=== PATIENT | male | born 1950 | race Two or more races ===

== ENCOUNTER 2017-05-15 17:07 | Emergency (ER) | payer OTHER ==
[~2017-05-15] VITALS: Ht 165.1 cm; Wt 71.2 kg
[2017-05-15 19:14] LABS: Basophils # (auto) 0 uL; Basophils % (auto) 0.1 % (0.0-2.0); Eosinophils # (auto) 0.1 uL; Hemoglobin 10.9 g/dL (13.5-17.5); Lymphocytes # (auto) 0.5 uL; Neutrophils # (auto) 5.7 uL
[2017-05-15 19:16] LABS: Hematocrit 32.5 % (41.0-53.0); Mean Corpuscular Hgb Conc. 33.6 g/dL (32.0-36.0); Mean Corpuscular Volume 80.4 fL (80.0-100.0); Monocytes # (auto) 0.6 uL; Monocytes % (auto) 8.1 % (0.0-12.0); Neutrophils % (auto) 82.8 % (37.0-80.0); Platelet Count (auto) 262 10^3/uL (140-450); Red Blood Cells 4.04 10^6/uL (4.5-5.90); Red Cell Distribution Width 14.4 % (11.8-14.3); White Blood Cell 6.9 10^3/uL (4.4-10.8)
[2017-05-15 19:34] LABS: Urine Bacteria NONE SEEN /hpf (None Seen); Urine Blood Negative /uL (Negative); Urine Hyaline Cast FEW /lpf (0 - 2); Urine Mucus FEW (None Seen); Urine Specific Gravity 1.011 (1.001-1.035); Urine WBC <1 /hpf (0 - 3)
[2017-05-15 19:45] LABS: Albumin 3.3 g/dL (3.4-5.0); BUN/Creatinine Ratio 11.9; Bilirubin, Total 0.3 mg/dL (0.2-1.0); Calcium 8.1 mg/dL (8.5-10.1); Potassium 3.9 mmol/L (3.5-5.1)
[2017-05-15] MEDS ORDERED: SODIUM CHLORIDE 0.9% 1,000 ML IV ONE (20:30)
[2017-05-15] MEDS ORDERED: LEVOFLOXACIN 750MG 150 ML IV ONE (20:30)
[2017-05-15 23:15] VITALS: BP 119/74
== END 2017-05-15 23:37 | disposition home or self-care (01) ==
LOC: ER 17:07
DX: J10.1 Influenza due to other identified influenza virus with other respiratory manifestations (principal); I10 Essential (primary) hypertension; E78.5 Hyperlipidemia, unspecified
CPT/HCPCS: 36415; 71045; 80053; 81001; 83880; 84484; 85025; 87804; 93005; 96365; 96366; 99285; J1956; J7030

== ENCOUNTER 2024-05-04 03:25 | Inpatient (IN) | payer OTHER, MEDICAID ==
[~2024-05-04] VITALS: Ht 165.1 cm; Wt 73.4 kg
[~2024-05-04 03:25] MED LIST: ASPI1TAB20 PO; CHOL500046 PO; CYAN-17 PO; DIGO0.12 PO; DOXA4TAB83 PO; FINA5TAB4 PO; GABA400C PO; HYDR-4072 PO; OMEP20TA PO; SIMV20TA20 PO; TIZA4CAP PO
[2024-05-04 04:41] LABS: Basophils # (auto) 0 10 ^3/uL (0-0.2); Eosinophils # (auto) 0 10 ^3/uL (0-0.8); Eosinophils % (auto) 0.1 % (0.0-7.0); Hematocrit 40.1 % (41.0-53.0); Hemoglobin 13.7 g/dL (13.5-17.5); Lymphocytes % (auto) 11.4 % (10.0-50.0); Mean Corpuscular Hgb Conc. 34.1 g/dL (32.0-36.0); Monocytes # (auto) 0.4 10 ^3/uL (0-1.3); Monocytes % (auto) 4.5 % (0.0-12.0); Neutrophils # (auto) 7.2 10 ^3/uL (1.6-8.6); Nucleated Red Blood Cells % 0.1 %; Platelet Count (auto) 191 10^3/uL (140-450); Red Blood Cells 4.71 10^6/uL (4.5-5.90); Red Cell Distribution Width 14.2 % (11.8-14.3); White Blood Cell 8.6 10^3/uL (4.4-10.8)
[2024-05-04] MEDS: MORPHINE SULFATE 4 MG/ML SYR/VIAL IV ONE (04:42)
[2024-05-04] MEDS: PANTOPRAZOLE 40 MG/10 ML VIAL INJ IV ONE (04:42)
[2024-05-04] MEDS: ONDANSETRON HCL 4 MG/2 ML VIAL IV ONE (04:42)
[2024-05-04 04:49] VITALS: PULSE 63; RESP 18; O2SAT 99
[2024-05-04 05:01] LABS: Alanine Aminotransferase 16 U/L (7-40); Albumin 4.5 g/dL (3.2-4.8); Alkaline Phosphatase 115 U/L (46-116); Anion Gap 8 (5-15); Aspartate Aminotransferase 19 U/L (13-40); BUN/Creatinine Ratio 16.2 (10.0-20.0); Blood Urea Nitrogen 12 mg/dL (9-23); Carbon Dioxide 27 mmol/L (20-31); Chloride 105 mmol/L (98-107); Lipase 38 U/L (12-53); Sodium 140 mmol/L (136-145); Total Protein 6.9 g/dL (5.7-8.2)
[2024-05-04 05:02] LABS: Bilirubin, Total 1.1 mg/dL (0.2-1.0)
[2024-05-04 05:06] LABS: Glucose 132 mg/dL (74-106)
[2024-05-04 05:08] LABS: Lactic Acid w/Reflex 2.2 mmol/L (0.4-2.0)
--- NOTE | 2024-05-04 05:26 | DVH ---
Exam: CT CT AB PEL WO CON-NO ORAL OR IV History: upper abd pain Comparison Study: None available at time of dictation. TECHNIQUE: Multidetector CT of the abdomen and pelvis was performed from lung bases to ischial tubero sities. Imaging was performed without IV contrast using axial images. Coronal and sagittal reformats were obtained from the axial data set by the technologist. Radiation Dose Information: CT Dose: CTDI volume is 12.5 mGy. Dose-length product is 650.8 mGy*cm FINDINGS: Evaluation of solid organs is limited due to lack of intravenous contrast use. Findings: Lung Bases: No acute or significant lung base finding. Normal heart size. No pleural or pericardial effusion. Liver: The liver is normal in size. No focal lesions. Gallbladder and Biliary Tree: Cholecystectomy. No intrahepatic biliary ductal dilatation. The commo n bile duct is dilated measuring 11 mm. Spleen: Unremarkable Pancreas: The pancreas is grossly normal in appearance. Adrenal Glands: Unremarkable Kidneys: Kidneys are grossly normal without calculi or hydronephrosis. GI Tract: The stomach is grossly normal in appearance. There are dilated small bowel which are fluid- filled, compatible small bowel obstruction. No definite transition point identified. Normal appendix. Peritoneal cavity: No pneumoperitoneum. Free fluid in the pelvis. Lymphadenopathy: No mesenteric, retroperitoneal or periportal lymphadenopathy. Abdominal Wall and Mesentery: Unremarkable. Vasculature: The visualized abdominal aorta is normal in size and caliber. Evaluation of abdominal a nd pelvic vessels is limited due to lack of intravenous contrast. Pelvic Organs: Enlarged prostate measuring 5.0 cm in transverse dimension Urinary Bladder: Grossly unremarkable for degree of distention. Musculoskeletal: No aggressive focal bony lesions, acute fractures or dislocation. Severe bilateral h ip joint space narrowing with akic-we-kixh contact. Soft tissues: Unremarkable. IMPRESSION: 1. Small-bowel obstruction. No definite transition point identified. 2. Cholecystectomy. Mildly dilated common bile duct can be seen post cholecystectomy. Radiation optimization: All CT scans at this facility use at least one of these dose optimization yaz hniques: automated exposure control mA and/or kV adjustment per patient size (includes targeted exam s where dose is matched to clinical indication) or iterative reconstruction.
--- NOTE | 2024-05-04 05:30 | ED.PDOC ---
GI ASSESSMENT HPI Comments 74-year-old male with a history of hypertension, CVA and pacemaker placement brought in by EMS from home complaining of upper abdominal pain, nausea and vomiting since around 2300. He denies any diarrhea, constipation or dysuria. He denies any fever. EN route to the ED, EMS administered fentanyl 100 mcg IV, however on arrival to the ER the patient still states he is having abdominal pain and nausea. He also notes chills. Chief Complaint: Abdominal Pain Time Seen by MD: 03:58 Primary Care Provider: CALDERON Allergies: Coded Allergies: NO KNOWN ALLERGIES (Unverified , 05/15/17) Home Meds Reported Medications Omeprazole (Gnp Omeprazole) 20 Mg Tab, 20 MG PO PRN, TAB 09/16/22 Cyanocobalamin (B12) 1,000 Mcg Cap, 1000 MCG PO DAILY, CAP 09/16/22 Gabapentin (Neurontin) 400 Mg Cap, 800 MG PO TID, CAP 09/16/22 Hydrocodone-Acetaminophen (Hydrocodone/Acetaminophen 10-325 mg) 1 Tab Tab, 1 TAB PO PRN, TAB 09/16/22 Simvastatin (Simvastatin) 20 Mg Tab, 20 MG PO DAILY, TAB 09/16/22 Tizanidine Hydrochloride (Zanaflex) 4 Mg Cap, 4 MG PO TID, CAP 09/16/22 Doxazosin Mesylate (Doxazosin Mesylate) 4 Mg Tab, 4 MG PO DAILY, TAB 09/16/22 Aspirin (Aspir-81) 81 Mg Tab, 81 MG PO DAILY, TAB 09/16/22 Finasteride (Finasteride) 5 Mg Tab, 5 MG PO DAILY, TAB 09/16/22 Digoxin (Digoxin) 125 Mcg Tab, 125 MCG PO DAILY, TAB 09/16/22 Cholecalciferol (D3 5000) 5,000 Unit Cap, 5000 UNIT PO DAILY, CAP 09/16/22 Mode of Arrival: EMS Past Medical History PAST MEDICAL HISTORY: CVA, High Lipids, HTN Past Medical History (Other): BPH, arthritis Surgical History: Appendectomy Family History Family History: Reviewed,noncontributory to illness Social History Smoker: Non-Smoker Alcohol: Denies ETOH Use Drugs: Denies Drug Use Lives In: Home All Other Systems: Reviewed and Negative (Comprehensive systems review obtained and negative except for what is stated in the HPI.) Physical Exam General Appearance: Mild Distress HEENT: PERRL/EOMI, Other (Dry mucous membranes) Neck: Full Range of Motion, Normal Inspection Respiratory: Lungs Clear, No Accessory Muscle Use, No Respiratory Distress, No rmal Breath Sounds Cardiovascular: No Edema, No JVD, Regular Rate/Rhythm Breast Exam: Deferred Gastrointestinal: Epigastric, LUQ, RUQ, Soft, Tenderness Genitalia: Deferred Pelvic: Deferred Rectal: Deferred Extremities: Normal inspection, Normal range of motion, Non-tender, No pedal edema Neurologic: Alert (Oriented x4), Normal Affect, Normal Mood, Other (No gross focal deficit) Cerebellar Function: NOT DONE Reflexes: NOT DONE Skin: Dry, Normal Color, Warm Lymphatic: NOT DONE EKG EKG : Comments Atrial paced rhythm, rate 80, PA 215, QRS and QTC normal, left axis deviation, normal QRS, nonspecific T change. Was a procedure done? Was a procedure done?: No GI differential Dx Differential Diagnosis: Cholecystitis, Constipation, Diverticular disease, Gastritis/PUD, Gastroenteritis, Hernia, Inflammatory BD, Ischemic Bowel, UTI, Dehydration, Diabetes/ DKA, Electrolyte Imbalance, Food Poisoning, Bacterial, Viral, Hypovolemia, Impaction, Renal Failure, Stress Ulcer X-Ray, Labs, Meds, VS Vital Signs Date Time Temp Pulse Resp B/P (MAP) Pulse Ox O2 Delivery O2 Flow Rate FiO2 05/04/24 04:49 63 18 99 Room Air* 0 21 05/04/24 04:42 63 18 176/72 05/04/24 04:39 98.0 63 18 176/72 (106) 99 98.0 05/04/24 03:32 97.8 76 18 160/89 (112) 97 05/04/24 03:27 80 Lab Test 05/04/24 05:25 05/04/24 05:03 05/04/24 04:04 Range/Units Lactic Acid Level Pending 2.2 *H 0.4-2.0 mmol/L Troponin I High Sensitivity 4 5 </=54 ng/L White Blood Count 8.6 4.4-10.8 10^3/uL Red Blood Count 4.71 4.5-5.90 10^6/uL Hemoglobin 13.7 13.5-17.5 g/dL Hematocrit 40.1 L 41.0-53.0 % Mean Corpuscular Volume 85.0 80.0-100.0 fL Mean Corpuscular Hemoglobin 29.0 28.0-32.0 pg Mean Corpuscular Hemoglobin Concent 34.1 32.0-36.0 g/dL Red Cell Distribution Width 14.2 11.8-14.3 % Platelet Count 191 140-450 10^3/uL Mean Platelet Volume 7.5 6.9-10.8 fL Neutrophils (%) (Auto) 84.0 H 37.0-80.0 % Lymphocytes (%) (Auto) 11.4 10.0-50.0 % Monocytes (%) (Auto) 4.5 0.0-12.0 % Eosinophils (%) (Auto) 0.1 0.0-7.0 % Basophils (%) (Auto) 0.0 0.0-2.0 % Neutrophils # (Auto) 7.2 1.6-8.6 10 ^3/uL Lymphocytes # (Auto) 1.0 0.4-5.4 10 ^3/uL Monocytes # (Auto) 0.4 0-1.3 10 ^3/uL Eosinophils # (Auto) 0 0-0.8 10 ^3/uL Basophils # (Auto) 0 0-0.2 10 ^3/uL Nucleated Red Blood Cells 0.1 % Sodium Level 140 136-145 mmol/L Potassium Level 4.0 3.5-5.1 mmol/L Chloride Level 105 98-107 mmol/L Carbon Dioxide Level 27 20-31 mmol/L Anion Gap 8 5-15 Blood Urea Nitrogen 12 9-23 mg/dL Creatinine 0.74 0.700-1.30 mg/dL Glomerular Filtration Rate Calc 95 >90 mL/min BUN/Creatinine Ratio 16.2 10.0-20.0 Serum Glucose 132 H 74-106 mg/dL Calcium Level 10.0 8.7-10.4 mg/dL Total Bilirubin 1.1 H 0.2-1.0 mg/dL Aspartate Amino Transferase (AST) 19 13-40 U/L Alanine Aminotransferase (ALT) 16 7-40 U/L Alkaline Phosphatase 115 46-116 U/L Total Protein 6.9 5.7-8.2 g/dL Albumin 4.5 3.2-4.8 g/dL Lipase 38 12-53 U/L Current Medications Medications (Trade) Dose Ordered Sig/Delfina Route Start Time Stop Time Status Last Admin Morphine Sulfate 4 mg ONCE ONCE IV 05/04/24 04:00 05/04/24 04:01 DC 05/04/24 04:42 Ondansetron HCl (Zofran) 4 mg ONCE ONCE IV 05/04/24 04:00 05/04/24 04:01 DC 05/04/24 04:42 Pantoprazole Sodium (Protonix) 40 mg ONCE ONCE IV 05/04/24 04:00 05/04/24 04:01 DC 05/04/24 04:42 PROCEDURE(s): ABPL - CT AB PEL WO CON-NO ORAL OR IV REASON: upper abd pain ORDER NUMBER(s): [id number], ACCESSION NUMBER(s): [id number] Exam: CT CT AB PEL WO CON-NO ORAL OR IV History: upper abd pain Comparison Study: None available at time of dictation. TECHNIQUE: Multidetector CT of the abdomen and pelvis was performed from lung bases to ischial tuberosities. Imaging was performed without IV contrast using axial images. Coronal and sagittal reformats were obtained from the axial data set by the technologist. Radiation Dose Information: CT Dose: CTDI volume is 12.5 mGy. Dose-length product is 650.8 mGy*cm FINDINGS: Evaluation of solid organs is limited due to lack of intravenous contrast use. Findings: Lung Bases: No acute or significant lung base finding. Normal heart size. No pleural or pericardial effusion. Liver: The liver is normal in size. No focal lesions. Gallbladder and Biliary Tree: Cholecystectomy. No intrahepatic biliary ductal dilatation. The common bile duct is dilated measuring 11 mm. Spleen: Unremarkable Pancreas: The pancreas is grossly normal in appearance. Adrenal Glands: Unremarkable Kidneys: Kidneys are grossly normal without calculi or hydronephrosis. GI Tract: The stomach is grossly normal in appearance. There are dilated small bowel which are fluid-filled, compatible small bowel obstruction. No definite transition point identified. Normal appendix. Peritoneal cavity: No pneumoperitoneum. Free fluid in the pelvis. Lymphadenopathy: No mesenteric, retroperitoneal or periportal lymphadenopathy. Abdominal Wall and Mesentery: Unremarkable. Vasculature: The visualized abdominal aorta is normal in size and caliber. Evaluation of abdominal and pelvic vessels is limited due to lack of intravenous contrast. Pelvic Organs: Enlarged prostate measuring 5.0 cm in transverse dimension Urinary Bladder: Grossly unremarkable for degree of distention. Musculoskeletal: No aggressive focal bony lesions, acute fractures or dislocation. Severe bilateral hip joint space narrowing with eaws-xy-xmqh contact. Soft tissues: Unremarkable. IMPRESSION: 1. Small-bowel obstruction. No definite transition point identified. 2. Cholecystectomy. Mildly dilated common bile duct can be seen post cholecystectomy. Radiation optimization: All CT scans at this facility use at least one of these dose optimization techniques: automated exposure control mA and/or kV adjustment per patient size (includes targeted exams where dose is matched to clinical indication) or iterative reconstruction. X-Ray, Labs, Meds, VS Comment 74-year-old male with a history of hypertension, CVA and pacemaker placement brought in by EMS from home complaining of upper abdominal pain, nausea and vomiting since around 2300. Vitals remarkable for BP 160/89 Exam remarkable for upper abdominal tenderness to palpation Rhythm strip independently interpreted by me: Atrial paced rhythm, rate 80, no PVCs. CT abdomen and pelvis IMPRESSION: 1. Small-bowel obstruction. No definite transition point identified. 2. Cholecystectomy. Mildly dilated common bile duct can be seen post cholecystectomy. CBC unremarkable, metabolic panel unremarkable, lipase normal, troponin neg ative, UA pending, lactate 2.2 Patient treated with the following in the ED: Morphine 4 mg IV, Zofran 4 mg IV, Protonix 40 mg IV NG-tube to low intermittent suction ordered On re-evaluation, patient states pain is slightly improved. Vitals were stable. Plan is to admit the patient for lactate trend, pain and emesis control and surgical evaluation. Stat surgical consult has been placed. Time of 1ST Reevaluation: 06:00 Reevaluation 1ST: Improved Patient Education/Counseling: Diagnosis, Treatment Family Education/Counseling: No Family Present Departure 1 Departure Time of Disposition: 05:29 Impression: Primary Impression: Small bowel obstruction Additional Impression: Elevated lactic acid level Disposition: ADMITTED INPATIENT Admit to: Med Surg Condition: Guarded Critical Care Note Critical Care Time?: No Stability Stability form required: No Heart Score Heart Score: Heart Score Response (Comments) Value History N/A 0 EKG N/A 0 Age N/A 0 Risk Factors N/A 0 Troponin N/A 0 Total 0 HERNAN KNAPP MD May 04, 2024 05:30
[2024-05-04] MEDS: SODIUM CHLORIDE 0.9% 1,000 ML IV SCH (07:30)
[2024-05-04] MEDS ORDERED: ONDANSETRON HCL 4 MG/2 ML VIAL IV PRN (07:30)
[2024-05-04] MEDS ORDERED: MORPHINE SULFATE INJ 2 MG/ml SYRG IV PRN (07:30)
--- NOTE | 2024-05-04 07:31 | DVHHP2 ---
History of Present Illness Reason for Visit: Abdominal Pain History of Present Illness Tu Brandon is a 74-year-old male with past medical history of hypertension, hyperlipidemia, CVA, and BPH, who came in due to abdominal pain. Patient states the pain began last night about 2300 in his left lower quadrant with associated nausea and vomiting. He last vomited about 0400 while in the ER, he was medicated and states he feels better now. Last BM was about 0400. CT scan completed by ER shows evidence for small bowel obstruction. Patient will be admitted, NG tube placed, and surgical consult. I spoke with surgery early this morning. Cardiovascular: HTN, hyperipidemia, Other (Pacemaker) INSTITUTIONAL AIDE: CVA Renal/: Benign prostatic enlarg. Past Surgical History: Cholecystectomy, Hernia Repair, Other (Pacemaker) Family History: None Smoke: No ALCOHOL: none Drugs: None Lives: with Family Domestic Violence: Neg Review of Systems Constitutional: No: Fever, Chills, Sweats, Weakness, Malaise, Other Eyes: No: Pain, Vision change, Conjunctivae inflammation, Eyelid inflammation, Other, Redness ENT: No: Ear pain, Ear discharge, Nose pain, Nose discharge, Nose congestion, Mouth pain, Mouth swelling, Throat pain, Throat swelling, Other Respiratory: No: Cough, Dry, Shortness of breath, SOB with excertion, Wheezing, Hemoptysis, Pleuritic Pain, Sputum, Wheezing, Other Cardiovascular: No: Chest Pain, Palpitations, Orthopnea, Paroxysmal Noc. Dyspnea, Edema, Lt Headedness, Other Gastrointestinal: Nausea, Vomiting, Abdominal Pain; No: Diarrhea, Constipation, Melena, Hematochezia, Other Genitourinary: No Dysuria, No Frequency, No Incontinence, No Hematuria, No Retention, No Other Musculoskeletal: No: other, neck pain, shoulder pain, arm pain, back pain, hand pain, leg pain, foot pain Skin: No: Rash, Lesions, Jaundice, Bruising, Other Neurological: No: Weakness, Numbness, Incoordination, Change in speech, Confusion, Seizures, Other Allergies: Coded Allergies: NO KNOWN ALLERGIES (Unverified , 05/15/17) Exam Vital Signs Vital Signs Date Time Temp Pulse Resp B/P (MAP) Pulse Ox O2 Delivery O2 Flow Rate FiO2 05/04/24 04:49 63 18 99 Room Air* 0 21 05/04/24 04:42 176/72 05/04/24 04:39 98.0 98.0 General Appearance: Alert, Oriented X3, Cooperative, moderate distress HEENT: Atraumatic, PERRLA, Other (Mucous membr dry) Respiratory: Clear to auscultation, Normal air movement Cardiovascular: Regular rate, Normal S1, Normal S2, No murmurs Abdominal: Soft, Other (decreased bowel sounds, tenderness on palpitation) Extremities: No clubbing, No cyanosis, No edema, Normal pulses, No tenderness/swelling Skin: No rashes, No breakdown, No significant lesion Neuro: Normal gait, Normal speech, Strength at 5/5 X4 ext Psych/Mental Status: Mental status NL, Mood NL Labs/Xrays Labs Test 05/04/24 05:25 05/04/24 05:03 05/04/24 04:04 Range/Units Lactic Acid Level 1.6 0.4-2.0 mmol/L Troponin I High Sensitivity 4 </=54 ng/L White Blood Count 8.6 4.4-10.8 10^3/uL Red Blood Count 4.71 4.5-5.90 10^6/uL Hemoglobin 13.7 13.5-17.5 g/dL Hematocrit 40.1 L 41.0-53.0 % Mean Corpuscular Volume 85.0 80.0-100.0 fL Mean Corpuscular Hemoglobin 29.0 28.0-32.0 pg Mean Corpuscular Hemoglobin Concent 34.1 32.0-36.0 g/dL Red Cell Distribution Width 14.2 11.8-14.3 % Platelet Count 191 140-450 10^3/uL Mean Platelet Volume 7.5 6.9-10.8 fL Neutrophils (%) (Auto) 84.0 H 37.0-80.0 % Lymphocytes (%) (Auto) 11.4 10.0-50.0 % Monocytes (%) (Auto) 4.5 0.0-12.0 % Eosinophils (%) (Auto) 0.1 0.0-7.0 % Basophils (%) (Auto) 0.0 0.0-2.0 % Neutrophils # (Auto) 7.2 1.6-8.6 10 ^3/uL Lymphocytes # (Auto) 1.0 0.4-5.4 10 ^3/uL Monocytes # (Auto) 0.4 0-1.3 10 ^3/uL Eosinophils # (Auto) 0 0-0.8 10 ^3/uL Basophils # (Auto) 0 0-0.2 10 ^3/uL Nucleated Red Blood Cells 0.1 % Sodium Level 140 136-145 mmol/L Potassium Level 4.0 3.5-5.1 mmol/L Chloride Level 105 98-107 mmol/L Carbon Dioxide Level 27 20-31 mmol/L Anion Gap 8 5-15 Blood Urea Nitrogen 12 9-23 mg/dL Creatinine 0.74 0.700-1.30 mg/dL Glomerular Filtration Rate Calc 95 >90 mL/min BUN/Creatinine Ratio 16.2 10.0-20.0 Serum Glucose 132 H 74-106 mg/dL Calcium Level 10.0 8.7-10.4 mg/dL Total Bilirubin 1.1 H 0.2-1.0 mg/dL Aspartate Amino Transferase (AST) 19 13-40 U/L Alanine Aminotransferase (ALT) 16 7-40 U/L Alkaline Phosphatase 115 46-116 U/L Total Protein 6.9 5.7-8.2 g/dL Albumin 4.5 3.2-4.8 g/dL Lipase 38 12-53 U/L Exam: CT CT AB PEL WO CON-NO ORAL OR IV FINDINGS: Evaluation of solid organs is limited due to lack of intravenous contrast use. Findings: Lung Bases: No acute or significant lung base finding. Normal heart size. No pleural or pericardial effusion. Liver: The liver is normal in size. No focal lesions. Gallbladder and Biliary Tree: Cholecystectomy. No intrahepatic biliary ductal dilatation. The common bile duct is dilated measuring 11 mm. Spleen: Unremarkable Pancreas: The pancreas is grossly normal in appearance. Adrenal Glands: Unremarkable Kidneys: Kidneys are grossly normal without calculi or hydronephrosis. GI Tract: The stomach is grossly normal in appearance. There are dilated small bowel which are fluid-filled, compatible small bowel obstruction. No definite transition point identified. Normal appendix. Peritoneal cavity: No pneumoperitoneum. Free fluid in the pelvis. Lymphadenopathy: No mesenteric, retroperitoneal or periportal lymphadenopathy. Abdominal Wall and Mesentery: Unremarkable. Vasculature: The visualized abdominal aorta is normal in size and caliber. Evaluation of abdominal and pelvic vessels is limited due to lack of intravenous contrast. Pelvic Organs: Enlarged prostate measuring 5.0 cm in transverse dimension Urinary Bladder: Grossly unremarkable for degree of distention. Musculoskeletal: No aggressive focal bony lesions, acute fractures or dislocation. Severe bilateral hip joint space narrowing with vner-yb-vrue contact. Soft tissues: Unremarkable. IMPRESSION: 1. Small-bowel obstruction. No definite transition point identified. 2. Cholecystectomy. Mildly dilated common bile duct can be seen post cholecystectomy. Assessment/Plan Assessment/Plan Assessment: Small bowel obstruction, Hypertension, BPH, Plan: Admit to Med-Surg, Surgical consult, IV hydration, IV antibiotics, NPO, NG tube to LIS, Home medications held at this time due to NPO status, Home digoxin dose converted to IV daily, Consider small bowel follow through, Plan discussed with: Patient, Spouse Date of Service: May 04, 2024 Billing Provider: HARPREET DHALIWAL Common Visit Codes: [id number] INP/OBS CARE (HIGH) HARPREET DHALIWAL May 04, 2024 07:30
[2024-05-04] MEDS ORDERED: MET25T PO (07:54)
[2024-05-04 08:00] VITALS: PULSE 60; RESP 16; O2SAT 95
[2024-05-04] MEDS: SODIUM CHLORIDE 0.9% 1,000 ML IV ONE (08:00)
[2024-05-04] MEDS ORDERED: METOCLOPRAMIDE HCL 5MG/ml INJ 2ml VIAL IV PRN (08:00)
--- NOTE | 2024-05-04 08:11 | ECG ---
[facility] Test Date: 2024-05-04 Test Time: 03:27:44 Pat Name: BLANCA GARCIA Department: ED Room: 0245 Gender: M Manager Background: KIMANI : 1950 Requested By: HERNAN ONEAL Order Number: [id number] Reading MD: Lino Kiser Measurements Intervals [place] Rate: 80 P: 0 NC: 215 QRS: -33 QRSD: 86 T: 0 QT: 351 QTc: 405 Interpretive Statements Atrial-paced rhythm Left axis deviation Borderline T abnormalities, inferior leads Electronically Signed On 05-08-2024 17:30:25 PST by Lino Kiser Please click the below link to view image of tracing.
--- NOTE | 2024-05-04 09:12 | DVHINCON2 ---
DATE OF CONSULTATION: 05/04/2024 HISTORY OF PRESENT ILLNESS: The patient is a 74-year-old male presenting to the emergency room due to abdominal pain. He has history of high blood pressure, hyperlipidemia, previous CVA, benign prostatic hypertrophy. The patient complained of left lower abdominal pain associated with nausea and vomiting. The patient had a bowel movement at 4 o'clock this morning. REVIEW OF SYSTEMS: He has history as outlined above CVA, BPH, hypertension, hyperlipidemia. Otherwise, no significant contributory factors on the 12 systems reviewed. ALLERGIES: The patient has no known medicinal allergies. PAST SURGICAL HISTORY: He has had bilateral inguinal hernia repair. No abdominal or chest operations. PHYSICAL EXAMINATION: GENERAL: Well-developed well-nourished male. HEENT: Pupils are equal, round, react to light equally. Sclerae nonicteric. Extraocular motion is intact. Uvula midline. Trachea midline. Carotids are full without bruits. Jugular veins are collapsed. HEART: Regular rate and rhythm without murmur or gallop. ABDOMEN: Soft, nondistended, nontender. There is no rebound tenderness. There is no guarding. No organomegaly. No CVA tenderness. EXTREMITIES: No peripheral vascular insufficiency. No venous stasis. IMAGING DATA: The patient's imaging was done by means of a CT scan of the abdomen without oral or IV contrast and it is interpreted as showing small bowel obstruction without definite transition point. Although the patient told me he had no previous surgeries, on the CT scan it states the patient is status post cholecystectomy with a physiologically dilated common bile duct. LABORATORY EVALUATION: He had a CBC which shows normal white count with slightly elevated neutrophil count of 84. The patient's H and H is normal. Chemistry shows slightly elevated lactic acid 2.2 on admission, however, that has normalized since then to 1.6. The patient's total bilirubin is 1.1. Electrolytes are normal. Lipase is normal. On further questioning, the patient states he is passing flatus. His abdominal pain is much improved. He has a nasogastric tube in place which is clamped at the time of my examination. We will order a Gastrografin small bowel follow through. The patient's small bowel obstruction most likely resolving spontaneously. There is no indication for an emergent abdominal surgical intervention. MD ERIKA Liang/HENRY TID: [id number] RECEIPT: [id number]
--- NOTE | 2024-05-04 09:16 | DVH ---
EXAM: XY CHEST PORTABLE HISTORY: NG tube placement verification COMPARISON: None TECHNIQUE: Portable upright AP view of the chest was performed. FINDINGS: There is a left chest pacemaker. NG tube is identified with its tip in the stomach about 13 cm distal to the GE junction. There is mild right basilar opacity. No pneumothorax or pulmonary vickie a. There is mild relative elevation of the right hemidiaphragm. The heart is not enlarged. The aortic arch is calcific. 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 Surgical clips in the right upper qu adrant are suggestive of prior cholecystectomy. IMPRESSION: 1. Mildly elevated right hemidiaphragm with right basilar scarring versus atelectasis present. Gene rison with old films would be necessary to make this distinction. 2. Postoperative changes left chest pacemaker, cholecystectomy, and NG tube.
--- NOTE | 2024-05-04 09:23 | DVHINCON2 ---
Date of service: May 04, 2024 Allergies: Coded Allergies: NO KNOWN ALLERGIES (Unverified , 05/15/17) Home Meds Reported Medications Cyanocobalamin (B12) 1,000 Mcg Cap, 1000 MCG PO DAILY, CAP 09/16/22 Hydrocodone-Acetaminophen (Hydrocodone/Acetaminophen 10-325 mg) 1 Tab Tab, 1 TAB PO PRN, TAB 09/16/22 Simvastatin (Simvastatin) 20 Mg Tab, 20 MG PO DAILY, TAB 09/16/22 Tizanidine Hydrochloride (Zanaflex) 4 Mg Cap, 4 MG PO TID, CAP 09/16/22 Doxazosin Mesylate (Doxazosin Mesylate) 4 Mg Tab, 4 MG PO DAILY, TAB 09/16/22 Aspirin (Aspir-81) 81 Mg Tab, 81 MG PO DAILY, TAB 09/16/22 Finasteride (Finasteride) 5 Mg Tab, 5 MG PO DAILY, TAB 09/16/22 Digoxin (Digoxin) 125 Mcg Tab, 125 MCG PO DAILY, TAB 09/16/22 Cholecalciferol (D3 5000) 5,000 Unit Cap, 5000 UNIT PO DAILY, CAP 09/16/22 Discontinued Reported Medications Metoprolol Tartrate (Lopressor) 25 Mg Tb, 0.5 TAB PO DAILY 05/04/24 Omeprazole (Gnp Omeprazole) 20 Mg Tab, 20 MG PO PRN, TAB 09/16/22 Gabapentin (Neurontin) 400 Mg Cap, 800 MG PO TID, CAP 09/16/22 Current Medications Current Medications Medications (Trade) Dose Ordered Sig/Delfina Route PRN Reason Start Time Stop Time Status Last Admin Sodium Chloride 1,000 ml @ 75 mls/hr [id number] IV 05/04/24 07:30 Ondansetron HCl (Zofran) 4 mg Q4HP PRN IV NAUSEA / VOMITING 05/04/24 07:30 Morphine Sulfate 2 mg Q4HPRN PRN IV SEVERE PAIN (7-10 PAIN SCALE) 05/04/24 07:30 Pantoprazole Sodium (Protonix) 40 mg BID IV 05/05/24 22:00 Metronidazole 100 ml @ 100 mls/hr Q8HR IV 05/04/24 14:00 Metoclopramide HCl (Reglan Injection) 10 mg Q8HPRN PRN IV NAUSEA / VOMITING 05/04/24 08:00 Vital Signs Vital Signs Date Time Temp Pulse Resp B/P (MAP) Pulse Ox O2 Delivery O2 Flow Rate FiO2 05/04/24 04:49 63 18 99 Room Air* 0 21 05/04/24 04:42 176/72 05/04/24 04:39 98.0 98.0 Labs/Diagnostic Data Labs Test 05/04/24 05:25 05/04/24 05:03 05/04/24 04:04 Range/Units Lactic Acid Level 1.6 0.4-2.0 mmol/L Troponin I High Sensitivity 4 </=54 ng/L White Blood Count 8.6 4.4-10.8 10^3/uL Red Blood Count 4.71 4.5-5.90 10^6/uL Hemoglobin 13.7 13.5-17.5 g/dL Hematocrit 40.1 L 41.0-53.0 % Mean Corpuscular Volume 85.0 80.0-100.0 fL Mean Corpuscular Hemoglobin 29.0 28.0-32.0 pg Mean Corpuscular Hemoglobin Concent 34.1 32.0-36.0 g/dL Red Cell Distribution Width 14.2 11.8-14.3 % Platelet Count 191 140-450 10^3/uL Mean Platelet Volume 7.5 6.9-10.8 fL Neutrophils (%) (Auto) 84.0 H 37.0-80.0 % Lymphocytes (%) (Auto) 11.4 10.0-50.0 % Monocytes (%) (Auto) 4.5 0.0-12.0 % Eosinophils (%) (Auto) 0.1 0.0-7.0 % Basophils (%) (Auto) 0.0 0.0-2.0 % Neutrophils # (Auto) 7.2 1.6-8.6 10 ^3/uL Lymphocytes # (Auto) 1.0 0.4-5.4 10 ^3/uL Monocytes # (Auto) 0.4 0-1.3 10 ^3/uL Eosinophils # (Auto) 0 0-0.8 10 ^3/uL Basophils # (Auto) 0 0-0.2 10 ^3/uL Nucleated Red Blood Cells 0.1 % Sodium Level 140 136-145 mmol/L Potassium Level 4.0 3.5-5.1 mmol/L Chloride Level 105 98-107 mmol/L Carbon Dioxide Level 27 20-31 mmol/L Anion Gap 8 5-15 Blood Urea Nitrogen 12 9-23 mg/dL Creatinine 0.74 0.700-1.30 mg/dL Glomerular Filtration Rate Calc 95 >90 mL/min BUN/Creatinine Ratio 16.2 10.0-20.0 Serum Glucose 132 H 74-106 mg/dL Calcium Level 10.0 8.7-10.4 mg/dL Total Bilirubin 1.1 H 0.2-1.0 mg/dL Aspartate Amino Transferase (AST) 19 13-40 U/L Alanine Aminotransferase (ALT) 16 7-40 U/L Alkaline Phosphatase 115 46-116 U/L Total Protein 6.9 5.7-8.2 g/dL Albumin 4.5 3.2-4.8 g/dL Lipase 38 12-53 U/L Assessment 74 year old male with priot inguinal hernia repair(left and right) and prior cholecystectomy, presented to the ER with abdominal pain nausea and vomiting, had a BM and is passing flatus, abdomen non distended,. non tender, will order gastrografin small bowel series, no indication for emergent intervention, full consult dictated Plan discussed with: Patient, Spouse ZULMA GAINES MD May 04, 2024 09:23
[2024-05-04] MEDS: GASTROGRAFIN 120 ML SOL ONE (11:08)
[2024-05-04] MEDS: DIGOXIN (250MCG/ML) 2 ML AMPULE IV SCH (12:33)
[2024-05-04] MEDS: ACETAMINOPHEN IV 1000 MG/100ML (10MG/ML) IV ONE (12:35)
[2024-05-04] MEDS: metroNIDAZOLE 500MG/100ML 100 ML IV SCH (14:30)
--- NOTE | 2024-05-04 16:12 | DVH ---
Procedure: XY SMALL BOWEL SERIES-W GASTROGRA Reason for study/Clinical History: r/o sbo Comparison Study: None available at time of dictation. Technique: Single contrast small bowel series performed. FINDINGS/IMPRESSION: Initial gunner's mate view of the abdomen and pelvis appears demonstrates no acute process. Contrast is identified within the colon by 5 hours. No dilated loops of small bowel are identified. NG tube is in the fundus of the stomach.
[2024-05-04 17:26] VITALS: BP 141/71; PULSE 60; RESP 16; TEMP 98.4; O2SAT 97
[2024-05-04 20:00] VITALS: PULSE 60; RESP 18; O2SAT 98
[2024-05-04 21:00] VITALS: BP 149/74; PULSE 60; RESP 18; TEMP 97.4; O2SAT 98
[2024-05-05] VITALS (8 sets, daily range): BP systolic 131–159; BP diastolic 71–79; PULSE 60–68; RESP 16–18; TEMP 97.7–98.6; O2SAT 93–99
[2024-05-05 09:55] LABS: Basophils # (auto) 0 10 ^3/uL (0-0.2); Basophils % (auto) 0.4 % (0.0-2.0); Eosinophils # (auto) 0 10 ^3/uL (0-0.8); Eosinophils % (auto) 0.5 % (0.0-7.0); Hematocrit 36.4 % (41.0-53.0); Hemoglobin 12.9 g/dL (13.5-17.5); Lymphocytes # (auto) 1.1 10 ^3/uL (0.4-5.4); Lymphocytes % (auto) 22.4 % (10.0-50.0); Mean Corpuscular Hemoglobin 30.5 pg (28.0-32.0); Mean Corpuscular Hgb Conc. 35.4 g/dL (32.0-36.0); Mean Corpuscular Volume 86.1 fL (80.0-100.0); Monocytes # (auto) 0.3 10 ^3/uL (0-1.3); Monocytes % (auto) 6.1 % (0.0-12.0); Neutrophils # (auto) 3.6 10 ^3/uL (1.6-8.6); Neutrophils % (auto) 70.6 % (37.0-80.0); Nucleated Red Blood Cells % 0.1 %; Platelet Count (auto) 173 10^3/uL (140-450); Red Blood Cells 4.23 10^6/uL (4.5-5.90); Red Cell Distribution Width 14.6 % (11.8-14.3); White Blood Cell 5.1 10^3/uL (4.4-10.8)
[2024-05-05 10:12] LABS: Alanine Aminotransferase 14 U/L (7-40); Albumin 3.7 g/dL (3.2-4.8); Alkaline Phosphatase 102 U/L (46-116); Anion Gap 7 (5-15); Aspartate Aminotransferase 17 U/L (13-40); BUN/Creatinine Ratio 16.7 (10.0-20.0); Blood Urea Nitrogen 12 mg/dL (9-23); Calcium 9.1 mg/dL (8.7-10.4); Carbon Dioxide 28 mmol/L (20-31); Glucose 93 mg/dL (74-106); Potassium 3.9 mmol/L (3.5-5.1); Sodium 144 mmol/L (136-145); Total Protein 5.8 g/dL (5.7-8.2)
[2024-05-05 10:13] LABS: Bilirubin, Total 1.2 mg/dL (0.2-1.0); Chloride 109 mmol/L (98-107)
--- NOTE | 2024-05-05 10:37 | DVHPN2 ---
Progress Note Date Seen: May 05, 2024 Medical Necessity Reason Pt with a Central, PICC or Fol: No Objective vital signs Vital Sign Date Time Temp Pulse Resp B/P (MAP) Pulse Ox O2 Delivery O2 Flow Rate FiO2 05/05/24 08:55 98.4 60 17 152/76 (101) 97 98.4 05/04/24 20:00 Room Air* 0 21 Total Intake and Output 05/04/24 05/04/24 05/05/24 14:59 22:59 06:59 Intake Total 1000 ml 275 ml Output Total 400 ml 300 ml 1 ml Balance 600 ml -25 ml -1 ml medications Current Medications Medications Dose Ordered Sig/Delfina Route Start Time Stop Time Status Last Admin Dose Admin Sodium Chloride 1,000 ml @ 75 mls/hr [id number] IV 05/04/24 07:30 Ondansetron HCl 4 mg Q4HP PRN IV 05/04/24 07:30 Pantoprazole Sodium 40 mg BID IV 05/05/24 22:00 Metronidazole 100 ml @ 100 mls/hr Q8HR IV 05/04/24 14:00 05/05/24 05:38 100 MLS/HR Metoclopramide HCl 10 mg Q8HPRN PRN IV 05/04/24 08:00 Digoxin 125 mcg DAILY IV 05/04/24 10:00 05/04/24 12:33 125 MCG Hydralazine HCl 10 mg Q6HP PRN IV 05/04/24 10:45 Ketorolac Tromethamine 15 mg Q6HPRN PRN IV 05/04/24 12:30 05/09/24 12:29 laboratory and microbiology Laboratory Tests 05/05/24 09:05 Test 05/05/24 09:05 Range/Units Serum Glucose 93 74-106 mg/dL Problem List/Assessment/Plan Problem List/Assessment/Plan 05/05/24 gastrografin smallbowel series shows now evidence of bowel obstruction, patimarli had several watery bowel movements, his abdomen is non tender and non distended, will DC NGT and start po clear liquids Plan discussed with: Patient, Spouse ZULMA GAINES MD May 05, 2024 10:37
--- NOTE | 2024-05-05 12:36 | DVHPN2 ---
Subjective Pt. states that his abdominal pain has resolved. Reviewed: Care Plan, H&P, Medications Changes from previous H/P or p: Changes General: Per HPI Eyes: No Pain, No Vision change, No Conjunctivae inflammation, No Eyelid inflammation, No Other, No Redness ENT: No Ear pain, No Ear discharge, No Nose pain, No Nose discharge, No Nose congestion, No Mouth pain, No Mouth swelling, No Throat pain, No Throat swelling, No Other Cardiovascular: No Chest Pain, No Palpitations, No Orthopnea, No Paroxysmal Noc. Dyspnea, No Edema, No Lt Headedness, No Other Respiratory: No Cough, No Dry, No Shortness of breath, No SOB with excertion, No Wheezing, No Hemoptysis, No Pleuritic Pain, No Sputum, No Other Gastrointestinal: No Nausea, No Vomiting, No Abdominal Pain, No Diarrhea, No Constipation, No Melena, No Hematochezia, No Other Genitourinary: No Dysuria, No Frequency, No Incontinence, No Hematuria, No Retention, No Other Musculoskeletal: No other, No neck pain, No shoulder pain, No arm pain, No back pain, No hand pain, No leg pain, No foot pain Skin: No Rash, No Lesions, No Jaundice, No Bruising, No Other Objective Vitals Vital Signs Date Time Temp Pulse Resp B/P (MAP) Pulse Ox O2 Delivery O2 Flow Rate FiO2 05/05/24 11:05 66 05/05/24 08:55 98.4 17 152/76 (101) 97 98.4 05/04/24 20:00 Room Air* 0 21 Intake/Output Intake and Output 05/05/24 07:00 Intake Total 1275 ml Output Total 701 ml Balance 574 ml Intake IV Total 1275 ml Output Urine Total 300 ml Stool Total 1 ml Gastric Drainage Total 400 ml # Voids 3 General Appearance: Alert, Oriented X3, Cooperative, No acute distress HEENT: Atraumatic, PERRLA Lungs: Clear to auscultation, Normal air movement Cardiovascular: Normal S1, Normal S2 Abdomen: Normal bowel sounds, Soft, No tenderness, No hepatospenomegaly, No masses Genitourinary: No Apparent Abnormalities Musculoskeletal: Normal sensory function, Normal motor function Neuro: Normal gait, Normal speech Psych/Mental Status: Mental status NL, Mood NL Medications Current Medications Medications Dose Ordered Sig/Delfina Route Start Time Stop Time Status Last Admin Dose Admin Sodium Chloride 1,000 ml @ 75 mls/hr [id number] IV 05/04/24 07:30 05/05/24 11:06 75 MLS/HR Ondansetron HCl 4 mg Q4HP PRN IV 05/04/24 07:30 Pantoprazole Sodium 40 mg BID IV 05/05/24 22:00 Metronidazole 100 ml @ 100 mls/hr Q8HR IV 05/04/24 14:00 05/05/24 05:38 100 MLS/HR Metoclopramide HCl 10 mg Q8HPRN PRN IV 05/04/24 08:00 Digoxin 125 mcg DAILY IV 05/04/24 10:00 05/05/24 11:05 125 MCG Hydralazine HCl 10 mg Q6HP PRN IV 05/04/24 10:45 Ketorolac Tromethamine 15 mg Q6HPRN PRN IV 05/04/24 12:30 05/09/24 12:29 Laboratory Results Laboratory Tests 05/05/24 09:05 Chemistry Test 05/05/24 09:05 Albumin 3.7 g/dL (3.2-4.8) Calcium Level 9.1 mg/dL (8.7-10.4) Total Protein 5.8 g/dL (5.7-8.2) LFT Test 05/05/24 09:05 Alanine Aminotransferase (ALT) 14 U/L (7-40) Alkaline Phosphatase 102 U/L (46-116) Aspartate Amino Transferase (AST) 17 U/L (13-40) Total Bilirubin 1.2 mg/dL (0.2-1.0) H Labs and/or images reviewed: Labs reviewed by me, Image(s) reviewed by me Assessment/Plan Assessment/Plan Impression: -Small bowel obstruction -HTN -PPI, ? PAF -Dyslipidemia -BPH Plan: -Surgical consult: Small bowel follow though- no obstruction -Advance diet -Restart home meds -Hold Narcotics given possible etiology of obstruction -Reassess for Dc in am. Total time spent with patient: 35min Plan discussed with: Patient, Spouse, Other (RN) My Orders Orders - NELSY SCHWARTZ [employer]ANCE MANAGER Procedure Category Date Status Time Aspirin Enteric PHA 05/06/24 Transmitted Coated Tablet 10:00 Digoxin Tablet PHA 3/6/25 Transmitted (Lanoxin Tablet) 10:00 Finasteride Tablet PHA 05/06/24 Transmitted (Proscar Tablet) 10:00 (Nf) Simvastatin PHA 05/06/24 Transmitted 10:00 Date of Service: May 05, 2024 Billing Provider: NELSY SCHWARTZ NP Common Visit Codes: [id number] INP/OBS CARE(HIGH) NELSY SCHWARTZ NP May 05, 2024 12:36
[2024-05-05] MEDS: PANTOPRAZOLE 40 MG/10 ML VIAL INJ IV SCH (21:06)
[2024-05-05] MEDS: ATORVASTATIN 20 MG TAB PO SCH (21:06)
[2024-05-05] MEDS: hydrALAZINE HCL 20 MG/ML VL IV PRN (22:24)
[2024-05-05] MEDS: KETOROLAC TROMETH 30 MG/ML 1ML VIAL IV PRN (23:57)
[2024-05-06 01:00] VITALS: BP 145/69; PULSE 82; RESP 20; TEMP 98.1; O2SAT 99
[2024-05-06 05:00] VITALS: BP 142/70; PULSE 68; RESP 18; TEMP 97.4; O2SAT 97
[2024-05-06 07:52] LABS: Urine Bacteria None Seen /hpf (None Seen)
[2024-05-06 08:00] VITALS: PULSE 75; RESP 16; O2SAT 96
[2024-05-06 08:24] LABS: Urine Blood Negative /uL (Negative); Urine Clarity Clear (Clear); Urine Color Yellow (Yellow); Urine Mucus FEW (None Seen); Urine Protein, UAD Negative (Negative); Urine Specific Gravity 1.018 (1.001-1.035); Urine Squamous Epithelial Cell None Seen /hpf (<5); Urine Urobilinogen Normal (Negative); Urine WBC 5 /HPF (0-3)
[2024-05-06 09:00] VITALS: BP 149/75; PULSE 75; RESP 16; TEMP 98.6; O2SAT 96
[2024-05-06] MEDS ORDERED: PATIENTS OWN MEDICATION (Simvastatin 20 MG) PO SCH (10:00)
[2024-05-06] MEDS: ASPirin-EC 81 mg tab PO SCH (10:04)
[2024-05-06] MEDS: DIGOXIN 0.125 MG TAB PO SCH (10:04)
[2024-05-06] MEDS: FINASTERIDE 5 MG TAB PO SCH (10:05)
--- NOTE | 2024-05-06 11:10 | DVHDS2 ---
Discharge Summary Date of Admission May 04, 2024 at 07:26 Date of Discharge: May 06, 2024 Admitting Diagnosis Small-bowel obstruction Labs/Diagnostic Data: Laboratory Results Test 05/06/24 05:20 05/05/24 09:05 05/04/24 05:25 05/04/24 05:03 Urine Color Yellow (Yellow) Urine Clarity Clear (Clear) Urine pH 7.0 (5.0-9.0) Urine Specific [place] 1.018 (1.001-1.035) Urine Protein Negative (Negative) Urine Ketones 2+ (Negative) Urine Blood Negative /uL (Negative) Urine Nitrite Negative (Negative) Urine Bilirubin Negative (Negative) Urine Urobilinogen Normal mg/dL (Negative) Urine Leukocyte Esterase Negative /uL (Negative) Urine RBC None seen /hpf (0 - 3) Urine Microscopic WBC 5 /HPF (0-3) Urine Squamous Epithelial Cells None seen /hpf (<5) Urine Bacteria None seen /hpf (None Seen) Urine Mucus Few (None Seen) Urine Glucose Normal mg/dL (Normal) White Blood Count 5.1 10^3/uL (4.4-10.8) Red Blood Count 4.23 10^6/uL (4.5-5.90) Hemoglobin 12.9 g/dL (13.5-17.5) Hematocrit 36.4 % (41.0-53.0) Mean Corpuscular Volume 86.1 fL (80.0-100.0) Mean Corpuscular Hemoglobin 30.5 pg (28.0-32.0) Mean Corpuscular Hemoglobin Concent 35.4 g/dL (32.0-36.0) Red Cell Distribution Width 14.6 % (11.8-14.3) Platelet Count 173 10^3/uL (140-450) Mean Platelet Volume 7.7 fL (6.9-10.8) Neutrophils (%) (Auto) 70.6 % (37.0-80.0) Lymphocytes (%) (Auto) 22.4 % (10.0-50.0) Monocytes (%) (Auto) 6.1 % (0.0-12.0) Eosinophils (%) (Auto) 0.5 % (0.0-7.0) Basophils (%) (Auto) 0.4 % (0.0-2.0) Neutrophils # (Auto) 3.6 10 ^3/uL (1.6-8.6) Lymphocytes # (Auto) 1.1 10 ^3/uL (0.4-5.4) Monocytes # (Auto) 0.3 10 ^3/uL (0-1.3) Eosinophils # (Auto) 0 10 ^3/uL (0-0.8) Basophils # (Auto) 0 10 ^3/uL (0-0.2) Nucleated Red Blood Cells 0.1 % Sodium Level 144 mmol/L (136-145) Potassium Level 3.9 mmol/L (3.5-5.1) Chloride Level 109 mmol/L (98-107) Carbon Dioxide Level 28 mmol/L (20-31) Anion Gap 7 (5-15) Blood Urea Nitrogen 12 mg/dL (9-23) Creatinine 0.72 mg/dL (0.700-1.30) Glomerular Filtration Rate Calc 96 mL/min (>90) BUN/Creatinine Ratio 16.7 (10.0-20.0) Serum Glucose 93 mg/dL (74-106) Calcium Level 9.1 mg/dL (8.7-10.4) Total Bilirubin 1.2 mg/dL (0.2-1.0) Aspartate Amino Transferase (AST) 17 U/L (13-40) Alanine Aminotransferase (ALT) 14 U/L (7-40) Alkaline Phosphatase 102 U/L (46-116) Total Protein 5.8 g/dL (5.7-8.2) Albumin 3.7 g/dL (3.2-4.8) Lactic Acid Level 1.6 mmol/L (0.4-2.0) Troponin I High Sensitivity 4 ng/L (</=54) Test 05/04/24 04:04 Lipase 38 U/L (12-53) Other Laboratory Tests 05/05/24 09:05 Brief Hx & Hospital Course: History of Present Illness Prestonjayne High Jose is a 74-year-old male with past medical history of hypertension, hyperlipidemia, CVA, and BPH, who came in due to abdominal pain. Patient states the pain began last night about 2300 in his left lower quadrant with associated nausea and vomiting. He last vomited about 0400 while in the ER, he was medicated and states he feels better now. Last BM was about 0400. CT scan completed by ER shows evidence for small bowel obstruction. Patient will be admitted, NG tube placed, and surgical consult. I spoke with surgery early this morning. Course of hospitalization: Surgical consultation was obtained. Patient has small-bowel follow-through with Gastrografin with the patient having no signs of obstruction with results. Patient had multiple BMs. Patient was diet has been advanced. NG tube has been removed. Patient will be discharged home and continued on all home medications. He was instructed to follow up with his PCP in 1-2 weeks. All questions answered. Physical examination General: Alert and Oriented x3. No acute distress. Well-nourished. Eyes: EOMI. Anicteric. HENT: Moist mucous membranes. Lungs: Clear to auscultation bilaterally. No accessory muscle use. Cardiovascular: Regular rate and rhythm. No murmur. No JVD. Abdomen: Soft, non-tender and non-distended. No palpable masses. Extremities: No edema. Non-tender. Skin: No rashes or lesions. Warm. Neurologic: No focal neurological deficits. CN II-XII grossly intact, but not individually tested. Psychiatric: Cooperative. Appropriate mood and affect. Total time spent with patient discussing and formulating plan of care: 35 minutes. This medical document was created using an electronic medical record system with [employer] dictation system. Although this document has been carefully reviewed, there may still be some phonetic and typographical errors. These areas are purely typographical due to imperfections of the software programs, and do not reflect any compromise in the patient's medical care. Consults/Reason for consult Surgical consultation: Small-bowel obstruction Condition at Discharge: Fair Final Diagnosis/Problems List Small-bowel obstruction Secondary diagnosis: Primary hypertension Dyslipidemia -chronic pain syndrome -underlying paroxysmal atrial fibrillation Discharge Disposition: Home Discharge Instruct/Medications Diet: Regular Activity: No Restrictions, As Tolerated Follow Up/Referral: Follow up with PCP in 1-2 weeks Medications: Continue all home medications 36 Discharge Statement: "Patient was advised to return to the ER or call 911 if any headaches, dizziness, shortness of breath, chest pain, abdominal pain, bleeding, fevers, or worsening of medical condition. Patient was counseled about treatment plan, medications, possible side effects, patientverbalized understanding. All questions were answered to the best of my ability. This discharge took greater then 30 minutes in planning, reviewing documentation, counseling the patient, and discussing with other team members." ASSESSMENT ASSESSMENT Assessment Small-bowel obstruction Date of Service: May 06, 2024 Billing Provider: NELSY SCHWARTZ NP Common Visit Codes: [id number] DISCH DAY >30min NELSY SCHWARTZ NP May 06, 2024 11:10
[2024-05-06] MEDS ORDERED: HYDROcodone-ACET 5/325MG TAB PO PRN (11:15)
[2024-05-06] MEDS: METOPROLOL TARTRATE 25 MG TAB PO SCH (12:13)
[2024-05-06 12:36] VITALS: BP 148/75; PULSE 77
== END 2024-05-06 13:50 | disposition home or self-care (01) | DRG 390 ==
LOC: EDBD 03:25 → ER 03:25 → OVERFLOW 07:26 → EAST 17:09
PROVIDERS: ADMIT Nurse Practitioner Acute Care; ATTEND Nurse Practitioner Acute Care
PROC: 0D9670Z Drainage of Stomach with Drainage Device, Via Natural or Artificial Opening (ICD-10-PCS; principal; 2024-05-04)
DX: K56.609 Unspecified intestinal obstruction, unspecified as to partial versus complete obstruction (principal); E78.5 Hyperlipidemia, unspecified; I10 Essential (primary) hypertension; I48.0 Paroxysmal atrial fibrillation; N40.0 Benign prostatic hyperplasia without lower urinary tract symptoms; G89.4 Chronic pain syndrome; Z86.73 Personal history of transient ischemic attack (TIA), and cerebral infarction without residual deficits; Z95.0 Presence of cardiac pacemaker; Z79.891 Long term (current) use of opiate analgesic; Z79.899 Other long term (current) drug therapy; Z79.82 Long term (current) use of aspirin; Z90.49 Acquired absence of other specified parts of digestive tract
CPT/HCPCS: 36415; 71045; 74176; 74250; 80053; 81001; 83605; 83690; 84484; 85025; 87086; 93005; 96361; 96374; 96375; G0378; J0131; J1885; J2405; J2470; J3490